=== PATIENT | male | born 1965 ===

== ENCOUNTER 2022-06-09 20:05 | Emergency (ER) | payer BC ==
[2022-06-09] MEDS: Sulfamethoxazole/Trimethoprim 800-160 MG Tab PO ONE (20:22)
== END 2022-06-09 20:38 | disposition home or self-care (01) ==
LOC: CC.ED 20:05
DX: L03.115 Cellulitis of right lower limb (principal); Z72.0 Tobacco use
CPT/HCPCS: 99283; A9270-GY